=== PATIENT | male | born 1995 | race Caucasian/White ===

== ENCOUNTER 2017-08-14 05:45 | Outpatient (CLI) | payer BC ==
[~2017-08-14] VITALS: Ht 175.3 cm; Wt 87.5 kg
== END 2017-08-14 15:31 ==
LOC: PREOP 05:45
PROVIDERS: ATTEND Orthopaedic Surgery
DX: Z01.818 Encounter for other preprocedural examination (principal); G56.01 Carpal tunnel syndrome, right upper limb

== ENCOUNTER 2017-08-22 07:36 | Day surgery (SDC) | payer BC, OTHER ==
--- NOTE | 2017-08-13 11:47 | HISTORY AND PHYSICAL ---
DATE OF SERVICE: 08/22/2017 This will be for outpatient surgery on 08/22/2017 for right open carpal tunnel release. 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 He has undergone extensive workup which ultimately revealed evidence of bilateral carpal tunnel syndrome. He reports right hand pain and paresthesias. He was having night pain, but this is for the most part resolved with splinting. 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 He reports persistent paresthesias in the tips of his ring, long and index fingers. He reports activity limitations because of his hand and because of failure to improve with conservative measures, the patient elected to proceed with surgical intervention. REVIEW OF SYSTEMS: No chest pain, no shortness of breath. No dysuria. PAST MEDICAL HISTORY: Significant for cervical spine bulging disk. PAST SURGICAL HISTORY: Right ACL reconstruction. FAMILY HISTORY: Emphysema. MEDICATIONS: Ibuprofen and vitamins. ALLERGIES: No known drug allergies. SOCIAL HISTORY: The patient drinks alcohol socially. Denies tobacco use. PHYSICAL EXAMINATION: GENERAL: The patient is well developed, well-nourished in no acute distress. HEENT: Normocephalic, atraumatic. Pupils are equal, round, reactive to light. Oropharynx is clear. NECK: Supple, with no lymphadenopathy. LUNGS: Clear to auscultation bilaterally. HEART: Regular rate and rhythm. ABDOMEN: Soft, nontender, nondistended. EXTREMITIES: The right hand demonstrates a positive Tinel's at the carpal tunnel with positive Phalen's maneuver. He has decreased sensation to light touch in the median distribution. No thenar atrophy is noted. He has intact sensation in an ulnar and radial distribution. IMPRESSION: Right carpal tunnel syndrome, unresponsive to conservative measures. PLAN: Right carpal tunnel release. The risks, benefits, options ramifications and recovery have been discussed at length with the patient. He understands and wishes to proceed. Job ID: [id number] DocumentID: [id number] Dictated Date: 08/13/2017 11:19:00 Certified Industrial Hygienist Date: 08/13/2017 11:46:31 Dictated By: RACHEL STARR MD [facility]
[~2017-08-22] VITALS: Ht 175.3 cm; Wt 87.5 kg
[~2017-08-22 07:36] MED LIST: LACTATED RINGERS 1,000 ML IV PRN; ceFAZolin INJECTION 1,000 MG in NS (IVPB) 50 ML IV ONE
[2017-08-22 07:50] VITALS: BP 120/74
[2017-08-22] MEDS ORDERED: LIDOCAINE 1% INJ 20 ML (XYLOCAINE) VIAL ONE (08:09)
[2017-08-22] MEDS ORDERED: PROPOFOL INJECTION 50 ML IV ONE (08:09)
[2017-08-22] MEDS ORDERED: BUPIVACAINE 0.5% 30 ML (SENSORCAINE) VIAL ONE (08:09)
[2017-08-22] MEDS ORDERED: MIDAZOLAM 2 MG/2 ML (VERSED) VIAL ONE (08:09)
--- NOTE | 2017-08-22 09:17 | Progress Note-Pre Operative ---
Pre-Operative Progress Note H&P Reviewed The H&P was reviewed, patient examined and no changes noted. Date Seen by Provider: Aug 22, 2017 Time Seen by Provider: 09:17 Date H&P Reviewed: Aug 22, 2017 Time H&P Reviewed: :17 Pre-Operative Diagnosis: right carpal tunnel syndrome RACHEL STARR MD Aug 22, 2017 09:17
--- NOTE | 2017-08-22 09:20 | Progress Note-Post Operative ---
Post-Operative Progess Note Surgeon (s)/Inside Technical Sales Representative (s) Surgeon RACHEL STARR MD Inside Technical Sales Representative: Cristhian Christopher Pre-Operative Diagnosis right carpal tunnel syndrome Post-Operative Diagnosis right carpal tunnel syndrome Procedure & Operative Findings Date of Procedure 08/22/17 Procedure Performed/Findings right carpal tunnel release Anesthesia Type MAC plus local Estimated Blood Loss Estimated blood loss (mL): minimal Specimens/Packing Specimens Removed none Packing: none RACHEL STARR MD Aug 22, 2017 09:20
[2017-08-22] MEDS ORDERED: HYDROcodone/APAP 5 MG/325 MG (LORTAB) TAB PO PRN (09:30)
[2017-08-22] MEDS ORDERED: ONDANSETRON 4 MG/2 ML (SDV) Z0FRAN IVP PRN (10:15)
[2017-08-22] MEDS ORDERED: morphine INJ 10 MG/ML 1ML (SYR OR VIAL) IVP PRN (10:15)
[2017-08-22 10:20] VITALS: BP 112/61
[2017-08-22 10:21] VITALS: BP 112/61
[2017-08-22] MEDS ORDERED: HYDR-3812 PO (10:32)
[2017-08-22 10:50] VITALS: BP 105/61
[2017-08-22 10:51] VITALS: BP 105/61
--- NOTE | 2017-08-22 18:26 | OPERATIVE REPORT ---
DATE OF SERVICE: 08/22/2017 PREOPERATIVE DIAGNOSIS: Right carpal tunnel syndrome. POSTOPERATIVE DIAGNOSIS: Right carpal tunnel syndrome. PROCEDURE: Right open carpal tunnel release. SURGEON: Ruddy Starr MD. MILLER KILN DRIED SALT: Cristhian Christopher, who assisted throughout the procedure and closed the incision. ANESTHESIA: Monitored anesthesia care plus local by Dr. Antony. TOURNIQUET TIME: 6 minutes at 250 mmHg. ESTIMATED BLOOD LOSS: Minimal. DRAINS: None. COMPLICATIONS: None. POSTOPERATIVE PLAN: Routine protocol. The patient was transferred to the recovery room awake and in stable condition. 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 He underwent an EMG nerve conduction study, which showed evidence of right carpal tunnel syndrome. He had a positive Tinel's at the carpal tunnel with a positive Phalen's maneuver. He reported functional impairment and because of this, the patient elected to proceed with surgical intervention. PROCEDURE: After risks and benefits of procedure were discussed and questions were answered, an informed consent was signed and placed on chart. The operative site was confirmed in the preoperative holding area initialed by the surgeon. The patient was then transported to the operating room and after adequate levels of monitored anesthesia care were obtained, a time-out was called confirming the operative site. Under sterile conditions, the incision site was infiltrated with a combination of plain lidocaine and plain Marcaine. The right upper extremity was then prepped and draped in the usual sterile fashion. With the arm elevated, the tourniquet was inflated to 250 mmHg. An incision was made in line with the radial border of the ring finger over the transverse carpal ligament. The underlying soft tissues were carefully dissected. Transverse carpal ligament was identified and sharply incised by pushing through with the scalpel blade. The median nerve was identified and carefully protected throughout the procedure and intact at the conclusion of the procedure. There was some erythema noted of the median nerve in the mid palm area, but it was intact. Distally, transverse carpal ligament was confirmed, fully released with a Prosperity. Proximally, the transverse carpal ligament spread above and below with dissection scissors and then while carefully protecting, the nerve was incised. This was confirmed, fully freed with a Prosperity. The tourniquet was deflated time of six minutes. Pressure was used for hemostasis. Wound was copiously irrigated and closed with 4-0 nylon in running alternating horizontal mattress fashion. A soft dressing and splint were applied and the patient was transferred to the recovery room, awake and in stable condition. Job ID: [id number] DocumentID: [id number] Dictated Date: 08/22/2017 09:51:31 Credit Correspondence Clerk Date: 08/22/2017 18:25:42 Dictated By: RUDDY STARR MD
== END 2017-08-22 11:05 | disposition home or self-care (01) ==
LOC: SDC 07:36
PROVIDERS: ATTEND Orthopaedic Surgery
DX: G56.01 Carpal tunnel syndrome, right upper limb (principal)
CPT/HCPCS: 87081

== ENCOUNTER 2017-11-15 05:31 | Outpatient (CLI) | payer BC ==
[~2017-11-15] VITALS: Ht 175.3 cm; Wt 95.3 kg
[~2017-11-15 05:31] MED LIST changes: +ACHD5005 PO; -LACTATED RINGERS 1,000 ML IV PRN; -ceFAZolin INJECTION 1,000 MG in NS (IVPB) 50 ML IV ONE
== END 2017-11-15 10:40 ==
LOC: PREOP 05:31
PROVIDERS: ATTEND Orthopaedic Surgery
DX: Z01.818 Encounter for other preprocedural examination (principal); G56.02 Carpal tunnel syndrome, left upper limb

== ENCOUNTER 2017-11-21 06:01 | Day surgery (SDC) | payer BC, OTHER ==
--- NOTE | 2017-11-12 14:20 | HISTORY AND PHYSICAL ---
DATE OF SERVICE: DATE OF ADMISSION: 11/21/2017. This will be admission for outpatient surgery on 11/21/2017, for left carpal tunnel release. HISTORY OF PRESENT ILLNESS: The patient is a 22-year-old right hand dominant gentleman with complaints of bilateral hand pain and paresthesias. He underwent a right carpal tunnel release with excellent results, but has had persistent left hand pain and paresthesias. He had previously undergone treatment with splinting without relief. He underwent an EMG nerve conduction study which showed evidence of carpal tunnel syndrome and due to persistent symptoms despite conservative measures and treatment, the patient elected to proceed with surgical intervention. REVIEW OF SYSTEMS: No chest pain, no shortness of breath. No dysuria. PAST MEDICAL HISTORY: C5 neuropraxia. PAST SURGICAL HISTORY: Right ACL reconstruction. FAMILY HISTORY: Significant for chronic obstructive pulmonary disease. PRIMARY CARE PROVIDER: Non-local. MEDICATIONS: Ibuprofen. ALLERGIES: No known drug allergies. SOCIAL HISTORY: The patient drinks alcohol socially. Denies tobacco use. PHYSICAL EXAMINATION: GENERAL: The patient is well developed, well-nourished in no acute distress. HEENT: Normocephalic, atraumatic. Pupils are equal, round and reactive to light. Oropharynx is clear. NECK: Supple. No lymphadenopathy. LUNGS: Clear to auscultation bilaterally. HEART: Regular rate and rhythm. ABDOMEN: Soft, nontender, nondistended. EXTREMITIES: The left hand demonstrates positive Tinel's, carpal tunnel with positive Phalen's maneuver. He has decreased sensation to light touch in the median distribution. NEUROLOGIC: No gross weakness to thumb palmar abduction. IMPRESSION: Left carpal tunnel syndrome. PLAN: Left carpal tunnel release. The risks, benefits, options, complications and recovery have been discussed at length with the patient. He understands and wished to proceed. Job ID: [id number] DocumentID: [id number] Dictated Date: 11/12/2017 14:01:40 Insurance Claims Analyst Date: 11/12/2017 14:19:46 Dictated By: RACHEL STARR MD
[~2017-11-21] VITALS: Ht 175.3 cm; Wt 95.3 kg
[2017-11-21 06:30] VITALS: BP 130/80
[2017-11-21] MEDS ORDERED: LIDOCAINE 1% INJ 20 ML (XYLOCAINE) VIAL ONE (07:05)
[2017-11-21] MEDS ORDERED: BUPIVACAINE 0.5% 30 ML (SENSORCAINE) VIAL ONE (07:05)
[2017-11-21] MEDS ORDERED: ceFAZolin 1,000 MG (ANCEF) VIAL ONE (07:06)
[2017-11-21] MEDS ORDERED: NS (IVPB) 100 ML ONE (07:06)
[2017-11-21] MEDS ORDERED: proPOfol 200 MG/20 ML (DIPRIVAN) VIAL IV ONE (07:08)
[2017-11-21] MEDS ORDERED: MIDAZOLAM 2 MG/2 ML (VERSED) VIAL ONE (07:08)
[2017-11-21] MEDS ORDERED: LIDOCAINE PF 2% 5 ML (XYLOCAINE) VIAL ONE (07:08)
[2017-11-21] MEDS ORDERED: ONDANSETRON 4 MG/2 ML (SDV) Z0FRAN IVP PRN (07:15)
[2017-11-21] MEDS ORDERED: morphine INJ 10 MG/ML 1ML (SYR OR VIAL) IVP PRN (07:15)
--- NOTE | 2017-11-21 07:18 | Progress Note-Pre Operative ---
Pre-Operative Progress Note H&P Reviewed The H&P was reviewed, patient examined and no changes noted. Date Seen by Provider: Nov 21, 2017 Time Seen by Provider: 07:11 Date H&P Reviewed: Nov 21, 2017 Time H&P Reviewed: 07:11 Pre-Operative Diagnosis: left carpal tunnel syndrome RACHEL STARR MD Nov 21, 2017 07:18
--- NOTE | 2017-11-21 07:19 | Progress Note-Post Operative ---
Post-Operative Progess Note Surgeon (s)/Parts Expediter (s) Surgeon RACHEL STARR MD Parts Expediter: none Pre-Operative Diagnosis left carpal tunnel syndrome Post-Operative Diagnosis left carpal tunnel syndrome Procedure & Operative Findings Date of Procedure 11/21/17 Procedure Performed/Findings left open carpal tunnel release Anesthesia Type MAC plus local Estimated Blood Loss Estimated blood loss (mL): minimal Specimens/Packing Specimens Removed none Packing: none RACHEL STARR MD Nov 21, 2017 07:19
[2017-11-21] MEDS ORDERED: HYDR-3062 PO (07:22)
[2017-11-21] MEDS ORDERED: HYDROcodone/APAP 5 MG/325 MG (LORTAB) TAB PO PRN (07:30)
[2017-11-21] MEDS ORDERED: fentaNYL INJECTION 100 MCG/2 ML AMP ONE (07:38)
[2017-11-21 08:30] VITALS: BP 113/75
--- NOTE | 2017-11-21 08:47 | OPERATIVE REPORT ---
DATE OF SERVICE: 11/21/2017 PREOPERATIVE DIAGNOSIS: Left carpal tunnel syndrome. POSTOPERATIVE DIAGNOSIS: Left carpal tunnel syndrome. PROCEDURE: Left open carpal tunnel release. SURGEON: Rachel Starr MD. ENTERER: None. ANESTHESIA: Monitored anesthesia care plus local by . TOURNIQUET TIME: Three minutes at 250 mmHg. ESTIMATED BLOOD LOSS: Minimal. DRAINS: None. COMPLICATIONS: None. POSTOPERATIVE PLAN: Routine protocol. The patient was transferred to the recovery room awake in stable condition. 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 He underwent an EMG nerve conduction study, which revealed evidence of left carpal tunnel syndrome. He tried splinting and activity modifications and therapy without relief. Due to functional impairment and failure to improve with conservative measures, the patient elected to proceed with surgical intervention. DESCRIPTION OF PROCEDURE: After risks and benefits of procedure were discussed and questions were answered and informed consent was signed and placed on chart, the operative site was confirmed in the preoperative holding area initialed by the surgeon. The patient was then transported to the operating room and after adequate levels of monitored anesthesia care was obtained, a timeout was called confirmed the operative site. Left upper extremity was prepped and draped in the usual sterile fashion. The incision site was infiltrated with a combination of plain lidocaine and plain Marcaine. After approximately 5 minutes, the tourniquet was inflated to 250 mmHg. Longitudinal incision was made in line with the radial border of the ring finger. Then, underlying soft tissues were carefully dissected. The transverse carpal ligament was identified, sharply incised by pushing through with the scalpel blade. The median nerve was identified and carefully protected throughout the procedure and then tacked at the conclusion of the procedure. , this was confirmed fully released with a freer. Proximal transverse carpal ligament was spread above and below with dissection scissors and then while carefully protecting the median nerve was opened with a slightly open scissor edges. This was confirmed fully freed with a freer. The tourniquet was deflated for a total tourniquet time of 3 minutes. Pressure was used for hemostasis. The wound was copiously irrigated and closed with 4-0 nylon in running alternating horizontal mattress fashion. A soft dressing and splint were applied and the patient was transported to the recovery room awake and in stable condition. Job ID: [id number] DocumentID: [id number] Dictated Date: 11/21/2017 07:58:05 Product Development Manager Date: 11/21/2017 08:46:14 Dictated By: RACHEL STARR MD
[2017-11-21] MEDS ORDERED: LACTATED RINGERS 1,000 ML IV PRN (08:48)
[2017-11-21 09:00] VITALS: BP 126/58
[2017-11-21] MEDS ORDERED: ceFAZolin INJECTION 1,000 MG in NS (IVPB) 100 ML IV ONE (09:00)
--- NOTE | 2017-11-21 09:14 | Anesthesia-General Post-Op ---
MAC Patient Condition Mental Status/LOC: Same as Preop Cardiovascular: Satisfactory Nausea/Vomiting: Absent Respiratory: Satisfactory Pain: Controlled Complications: Absent Post Op Complications Complications None Follow Up Care/Instructions Patient Instructions None needed. Anesthesiology Discharge Order Discharge Order Patient is doing well, no complaints, stable vital signs, no apparent adverse anesthesia problems. No complications reported per nursing. RONNIE HORN CRNA Nov 21, 2017 09:14
[2017-11-21 09:20] VITALS: BP 126/58
== END 2017-11-21 09:20 | disposition home or self-care (01) ==
LOC: SDC 06:01
PROVIDERS: ATTEND Orthopaedic Surgery
DX: G56.02 Carpal tunnel syndrome, left upper limb (principal); Z11.2 Encounter for screening for other bacterial diseases
CPT/HCPCS: 87081

== ENCOUNTER → 2018-04-12 | Outpatient (CLI) | payer OTHER ==
[~2018-04-12] MED LIST changes: +HYDR-3062 PO
--- NOTE | 2018-04-12 12:51 | Diagnostic Imaging Report ---
INDICATION: Lump in the right inguinal canal. FINDINGS: The right testicle measures 5.2 x 2.6 x 2.9 cm and the left testicle measures 4.8 x 2.5 x 3.3 cm. There is homogeneous echotexture to both testes. No discrete testicular mass is seen. There is blood flow bilaterally. Epididymides are unremarkable. There is no hydrocele or varicocele. Evaluation of the right inguinal canal demonstrates a small lymph node measuring 15 mm x 5 mm x 9 mm. No other abnormality is seen. IMPRESSION: 1. Unremarkable scrotal ultrasound. No testicular mass or vascular compromise is identified. 2. Small right inguinal lymph node. Dictated by: Dictated on workstation # [id number]
== END ==
LOC: RAD 12:07
PROVIDERS: ATTEND Nurse Practitioner Family
DX: R19.03 Right lower quadrant abdominal swelling, mass and lump (principal)
CPT/HCPCS: 76870